=== PATIENT | female | born 1970 | race Caucasian/White ===

== ENCOUNTER 2018-02-06 07:21 | Day surgery (SDC) | payer OTHER ==
[2018-02-06 08:34] VITALS: BMI 26.9
[2018-02-06] MEDS ORDERED: PROPOFOL 20 ML ONE ×2 (09:07)
[2018-02-06 09:59] VITALS: TEMP 97.4
[2018-02-06 11:10] VITALS: BP 112/70; PULSE 62
--- NOTE | 2018-02-07 14:44 | PATH ---
Surgical Pathology Report Patient Name: ZULAY AUSTIN [facility]. Rec. #: [id number] /Age/Gender: 1970 (Age: 48) / F Account: [id number] Location: [facility]-ENDOSCOPY Taken: 02/06/2018 Received: 02/06/2018 Reported: 02/07/2018 Physicians: Jani Moore M.D. Specimen(s) Received A: BX 2ND PORTION DUODENUM B: BX BODY/STOMACH C: BX MID ESOPHAGUS Clinical History GERD, dysphagia Postoperative diagnosis: Lipoma second portion of duodenum, erythema body of stomach Final Diagnosis A. DUODENUM, SECOND PORTION, BIOPSY: DUODENAL MUCOSA WITH MILD CHRONIC DUODENITIS. NO SUBMUCOSAL TISSUE PRESENT FOR EVALUATION. B. BODY/STOMACH, BIOPSY: GASTRIC MUCOSA WITH NO DIAGNOSTIC ABNORMALITIES. IMMUNOSTAIN IS NEGATIVE FOR H. PYLORI ORGANISMS. C. MID ESOPHAGUS, BIOPSY: ESOPHAGEAL (SQUAMOUS) MUCOSA WITH NO DIAGNOSTIC ABNORMALITIES. Electronically Signed Pita Watson M.D. Gross Description A. Received in formalin, labeled "biopsy second portion of duodenum" is a rivera, irregular portion of soft tissue measuring 0.5 cm. in greatest dimension. The specimen is submitted in toto in one cassette. B. Received in formalin, labeled "biopsy body/stomach" are 2 rivera, irregular portions of soft tissue averaging 0.2 cm. in greatest dimension. The specimens are submitted in toto in one cassette. C. Received in formalin, labeled "biopsy midesophagus" are 4 rivera, irregular portions of soft tissue ranging from 0.2-0.3 cm. in greatest dimension. The specimens are submitted in toto in one cassette. /02/06/2018 [facility]02/06/2018
== END 2018-02-06 11:10 | disposition home or self-care (01) ==
LOC: JASU-ENDO 07:21
PROVIDERS: ATTEND Internal Medicine Gastroenterology
PROC: 0DB68ZX Excision of Stomach, Via Natural or Artificial Opening Endoscopic, Diagnostic (ICD-10-PCS; 2018-02-06)
PROC: 0DB58ZX Excision of Esophagus, Via Natural or Artificial Opening Endoscopic, Diagnostic (ICD-10-PCS; 2018-02-06)
PROC: 0DB98ZX Excision of Duodenum, Via Natural or Artificial Opening Endoscopic, Diagnostic (ICD-10-PCS; principal; 2018-02-06 08:30)
DX: K29.80 Duodenitis without bleeding (principal)
CPT/HCPCS: 84703; 88305-TC; 88342-TC

== ENCOUNTER 2018-04-22 05:23 | Day surgery (SDC) | payer OTHER ==
[2018-04-16 18:33] VITALS: BMI 26.9
--- NOTE | 2018-04-22 09:25 | HP ---
Admitting History and Physical - Admission Chief Complaint: Pelvic mass History of Present Illness: 48 y/o female with past medical history of ovarian cyst, salpingitis/ pyosalpinx resulting in laparoscopic right salpingectomy, IBS, c section and arm surgery presented to the office with large pelvic mass found on CT and ultrasound. Imaging ordered 2/2 abdominal pain/pressure. Elevated Ova 1 and Ca 125. Pt seen by CUSTOMS PATROL OFFICER/Oncology as outpatient and recommended hysterectomy/ BSO. Plan made for Robotic Hysterectomy, BSO possible Laparotomy and staging procedures with Dr. Brower. History Source: Patient, Medical Record Limitations to Obtaining History: No Limitations - Past Medical History Cardiovascular: No: AFIB, HTN Pulmonary: No: Asthma, COPD Gastrointestinal: Yes: Other (IBS) ...LMP: 04/16/18 Heme/Onc: No: Anemia Psych: No: Anxiety, Bipolar, Depression - Past Surgical History Past Surgical History: Yes: Additional Past Surgical History: D&C laparoscopic right salpingectomy - Smoking History Smoking history: Former smoker Have you smoked in the past 12 months: No If you are a former smoker, when did you quit?: 1997 - Alcohol/Substance Use Hx Alcohol Use: Yes (socially) - Social History ADL: Independent History of Recent Travel: No Home Medications - Allergies Allergies/Adverse Reactions: Allergies Allergy/AdvReac Type Severity Reaction Status Date / Time No Known Allergies Allergy Verified 04/22/18 08:37 - Home Medications Home Medications: Ambulatory Orders Ibuprofen [Advil -] 200 mg PO BID 02/06/18 Omeprazole 40 mg PO DAILY 02/06/18 Meclizine HCl 12.5 mg PO BID 04/16/18 Oxycodone HCl/Acetaminophen [Percocet 5-325 mg Tablet] 1 - 2 tab PO Q6H PRN #30 tab MDD 8 04/23/18 Review of Systems - Review of Systems Constitutional: reports: No Symptoms Eyes: reports: No Symptoms HENT: reports: No Symptoms Neck: reports: No Symptoms Cardiovascular: reports: No Symptoms Respiratory: reports: No Symptoms Gastrointestinal: reports: Other (abdominal pressure) Genitourinary: reports: Other (occasional urinary incontinence). denies: Vaginal Bleeding Breasts: reports: No Symptoms Reported Integumentary: reports: No Symptoms Neurological: reports: No Symptoms Psychiatric: reports: No Symptoms Physical Examination Vital Signs: Vital Signs Temperature 98.5 F 04/22/18 08:34 Pulse Rate 104 H 04/22/18 08:34 Respiratory Rate 20 04/22/18 08:34 Blood Pressure 116/90 04/22/18 08:34 O2 Sat by Pulse Oximetry (%) 96 04/22/18 08:33 Constitutional: Yes: Well Nourished, No Distress, Calm HENT: Yes: WNL Gastrointestinal: Yes: Normal Bowel Sounds, Soft. No: Tenderness Extremities: Yes: WNL Edema: No Integumentary: Yes: WNL Neurological: Yes: Alert, Oriented Psychiatric: Yes: Alert, Oriented Problem List - Problems (1) Adnexal mass Code(s): N94.9 - UNSP COND ASSOC W FEMALE GENITAL ORGANS AND MENSTRUAL CYCLE Assessment/Plan plan for robotic hysterectomy, BSO AFVSS Hgb 12.8 preop NPO SCDs Prado catheter consents were signed previously with CUSTOMS PATROL OFFICER/ONC and were reconfirmed today
[2018-04-22] MEDS ORDERED: CEFAZOLIN 2 GM in DEXTROSE 5%-WATER - 100 ML IVPB ONE (09:56)
[2018-04-22] MEDS ORDERED: ROCURONIUM BROMIDE 50 MG/5 ML VIAL ONE ×2 (10:03→11:17)
[2018-04-22] MEDS ORDERED: LIDOCAINE HCL/PF 2% SDV 5ML VIAL ONE (10:03)
[2018-04-22] MEDS ORDERED: PROPOFOL 20 ML ONE (10:03)
[2018-04-22] MEDS ORDERED: MIDAZOLAM HCL 2 MG/2 ML SINGLE DOSE VIAL ONE (10:03)
[2018-04-22] MEDS ORDERED: fentaNYL CITRATE 250 MCG/5 ML VIAL ONE (10:03)
[2018-04-22] MEDS ORDERED: ceFAZolin SODIUM 1 GM VIAL ONE ×2 (10:55→17:11)
[2018-04-22] MEDS ORDERED: DEXAMETHASONE SOD PHOSPHATE 4 MG/1 ML VIAL ONE (11:01)
[2018-04-22] MEDS ORDERED: ceFAZolin SODIUM 1 GM VIAL IVPB ONE ×2 (11:01→11:02)
[2018-04-22] MEDS ORDERED: BUPIVACAINE HCL/PF 0.5% (5MG/ML) 10 ML VIAL ONE (11:10)
[2018-04-22] MEDS ORDERED: BUPIVACAINE HCL/PF (5 MG/ML) 30 ML VIAL IJ ONE ×2 (11:13→12:38)
[2018-04-22] MEDS ORDERED: NEOSTIGMINE METHYLSULFATE 0.5 MG/ML - 10 ML MDV ONE (12:31)
[2018-04-22] MEDS ORDERED: GLYCOPYRROLATE 0.2 MG/1 ML VIAL ONE (12:31)
[2018-04-22] MEDS ORDERED: ONDANSETRON 4 MG/2 ML VIAL IVPUSH PRN (13:06)
[2018-04-22] MEDS ORDERED: LACTATED RINGERS SOLUTION 1,000 ML IV SCH (13:15)
[2018-04-22] MEDS ORDERED: oxyCODONE HCL 5 MG TABLET PO PRN ×2 (13:23)
[2018-04-22] MEDS ORDERED: LACTATED RINGERS SOLUTION 1,000 ML/1,000 ML INFUS.BAG IV SCH (14:00)
[2018-04-22] MEDS ORDERED: IBUPROFEN 800 MG/8 ML IJ IVPB PRN (15:47)
[2018-04-22] MEDS ORDERED: SIMETHICONE 80 MG TAB.CHEW (FP) PO PRN (15:55)
[2018-04-22] MEDS ORDERED: DEXTROSE 5%-WATER - 50 ML IVPB ONE (17:11)
[2018-04-22] MEDS: CEFAZOLIN 1 GM in DEXTROSE 5%-WATER - 50 ML IVPB SCH (18:26)
--- NOTE | 2018-04-22 18:52 | OP ---
Operative Note - Note: Operative Date: 04/22/18 Pre-Operative Diagnosis: adnexal mass, elevated Ova 1 and Ca 125 Operation: Robotic TLH BSO Findings: Large left adnexal mass normal appearing uterus and right ovary absent right fallopian tube unremarkable intra abdominal findings Post-Operative Diagnosis: Same as Pre-op Surgeon: Cara Brower Actuarial Science Professor: Maddie Tolentino Anesthesiologist/BIOPROCESSING MANUFACTURING TECHNICIAN: Julio C Gamble Anesthesia: General Specimens Removed: uterus, cervix, left fallopian tube and ovary, right ovary, pelvic washings Estimated Blood Loss (mls): 50
[2018-04-22] MEDS: ACETAMINOPHEN 325 MG TABLET (FP) PO PRN (20:53)
[2018-04-22] MEDS: MECLIZINE HCL 12.5 MG TABLET PO SCH (21:02)
[2018-04-22] MEDS ORDERED: IBUPROFEN 200 MG TABLET PO SCH (22:00)
[2018-04-23] MEDS ORDERED: DEXTROSE 5%-WATER - 50 ML IVPB ONE (01:39)
[2018-04-23] MEDS ORDERED: ceFAZolin SODIUM 1 GM VIAL ONE (01:39)
[2018-04-23] MEDS: CEFAZOLIN 1 GM in DEXTROSE 5%-WATER - 50 ML IVPB SCH (01:45)
[2018-04-23] MEDS: ACETAMINOPHEN 325 MG TABLET (FP) PO PRN (06:41)
[2018-04-23 08:31] VITALS: BP 107/76; PULSE 96; TEMP 98.1
[2018-04-23 08:38] LABS: ANION GAP 7 (8-16); BASO % 0.3 % (0-2.0); BLOOD UREA NITROGEN 8 mg/dL (7-18); CALCIUM 8.4 mg/dL (8.5-10.1); CHLORIDE 107 mmol/L (98-107); CO2 29 mmol/L (21-32); EOS % 0.3 % (0-4.5); GLUCOSE,RANDOM 99 mg/dL (74-106); HEMOGLOBIN 10.6 GM/dL (10.7-15.3); LYMPH % 21.3 % (8-40); MCHC 34.4 g/dl (32.0-36.0); MEAN CELL VOLUME 90.2 fl (80-96); MEAN PLT VOLUME 7.5 fl (7.5-11.1); MONO % 5.4 % (3.8-10.2); NEUT % 72.7 % (42.8-82.8); PLATELET COUNT 210 K/MM3 (134-434); POTASSIUM 3.8 mmol/L (3.5-5.1); RBC 3.43 M/mm3 (3.60-5.2); SODIUM 143 mmol/L (136-145); WHITE BLOOD COUNT 7.2 K/mm3 (4.0-10.0)
[2018-04-23 08:41] LABS: CREATININE 0.5 mg/dL (0.55-1.02)
[2018-04-23] MEDS: MECLIZINE HCL 12.5 MG TABLET PO SCH (09:08)
--- NOTE | 2018-04-23 09:31 | PN ---
Progress Note (short form) - Note Progress Note: POD#1 Pt oob this am and voiding, after oro catheter removed. No CP/SOB. Tolerated clears last pm and small amount of solid food this am. Scant vaginal bleeding noted. Vital Signs Period Temp Pulse Resp BP Sys/Rebolledo Pulse Ox Last 24 Hr 97.6 F-99.1 F 68-105 14-22 107-131/70-89 98-100 GEN: appears comfortable CV: RRR Lungs: CTA b/l ABD: soft, non-distended, inc tenderness. Inc c/d/i with dermabond. LE: No calf tenderness/swelling noted. LINDSEY in place. CBC, BMP 04/23/ 07:40 04/23/18 07:40 A/p: 48 yo female s/p Robotic TLH BSO Plan for discharge to home today after tolerating regular diet Continue oob/ambulate DVT ppx with lovenox/SCD/LINDSEY and ambulate Care plan D/w. Dr. Tolentino
[2018-04-23] MEDS ORDERED: ENOXAPARIN NA (PORCINE) 40 MG/0.4 ML DISP.SYRIN SQ SCH (10:00)
[2018-04-23] MEDS ORDERED: PANTOPRAZOLE 40 MG TABLET (FP) PO SCH (10:00)
--- NOTE | 2018-04-28 17:09 | PATH ---
Cytology Non-Gynecological Report Patient Name: ZULAY AUSTIN [facility]. Rec. #: [id number] /Age/Gender: 1970 (Age: 48) / F Account: <[id number]> Location: [facility] Taken: 04/22/2018 Received: 04/23/2018 Reported: 04/28/2018 Physicians: Susan Neil MD Specimen(s) Received PERITONEAL WASH Clinical History Pelvic mass Final Diagnosis PERITONEAL WASHING FOR CYTOLOGY: SATISFACTORY FOR EVALUATION. ATYPICAL. RARE ATYPICAL PAPILLARY CLUSTER IN A BACKGROUND OF MESOTHELIAL CELLS WITH DEGENERATIVE CHANGES AND RARE LYMPHOCYTES PRESENT. Comment: There is a rare atypical papillary cluster which cannot be further classified in this material. ER stain is utilized to evaluate this case. See concurrent material ([id number]). Electronically Signed Kerry Ruelas M.D. Gross Description Approximately 30 cc of clear fluid received fresh. Two cytofunnels prepared.
--- NOTE | 2018-04-28 17:29 | PATH ---
Surgical Pathology Report Patient Name: ZULAY AUSTIN [facility]. Rec. 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 RIGHT OVARY WITH SMALL FOCUS OF HIGH GRADE SEROUS CARCINOMA. SMALL POSSIBLE RESIDUAL RIGHT FALLOPIAN TUBE STUMP IDENTIFIED. WEAKLY PROLIFERATIVE ENDOMETRIUM. MYOMETRIUM WITH INTRAMURAL LEIOMYOMA. CERVIX WITHOUT SIGNIFICANT PATHOLOGIC FINDINGS. AJCC PATHOLOGIC STAGE: pT1c pNx. Comment: Histologic sections show malignant epithelial cells with moderate to marked nuclear atypia, focal nuclear pleomorphism and prominent nucleoli. Branching papillary fronds, nests, and cribriform areas are present. Stromal invasion and numerous mitosis including rare atypical forms are present. Immunohistochemical stains performed at [place], [place] ([id number]) and interpreted at [facility] show the carcinoma is positive for WT-1, PAX-8, p16 (diffuse, strong), ER, and NE (focal). P53 shows strong and diffuse positive staining (mutant staining/expression). Beta-catenin was utilized to evaluate this case. Overall histomorphology and immunophenotype is consistent with high grade papillary serous carcinoma. See concurrent peritoneal washing ([id number]). Comments Ovary or Fallopian Tube or Primary Peritoneal: Surgical Pathology Cancer Case Summary Procedure _X_ Total hysterectomy and bilateral salpingo-oophorectomy Specimen Integrity of Right Ovary _X_ Capsule intact Specimen Integrity of Left Ovary _X_ Capsule intact Specimen Integrity of Right Fallopian Tube _X_ Other (specify): Possible stump present Specimen Integrity of Left Fallopian Tube _X_ Serosa intact Tumor Site _X_ Left fallopian tube Ovarian Surface Involvement _X__ Present Specify laterality: Right Fallopian Tube Surface Involvement _X_ Not Present Tumor Size Greatest dimension (centimeters): _5 x 3.5 x 2.0_ cm (gross measurement) Histologic Type _X__ Serous carcinoma Histologic Grade Two-Tier Grading System _X_ High grade Implants _X__ Not identified Other Tissue/ Organ Involvement _X_ Right ovary Peritoneal/Ascitic Fluid _X__ Atypical: Atypical papillary cluster which cannot be further classified ([id number]) Pleural Fluid _X__ Not submitted / unknown Treatment Effect __X_ No known presurgical therapy Regional Lymph Nodes _X__ No lymph nodes submitted or found Pathologic Stage Classification (pTNM, AJCC 8th Edition) Primary Tumor (pT) _X__ pT1c: Tumor limited to one or both ovaries or fallopian tubes. Regional Lymph Nodes (pN) _X_ pNX: Regional lymph nodes cannot be assessed Additional Pathologic Findings _X__ Serous tubal intraepithelial carcinoma (STIC) _X__ Other (specify): Intramural leiomyoma Electronically Signed Kerry Ruelas M.D. Amendments Amended: 05/13/2018 Previous Signout Date: 04/28/2018 Comment: Change staging from T1b to T1c. Findings discussed with Dr. Serrano. Gross Description Received fresh labeled "uterus, cervix, left fallopian tube and ovary and cyst," is a 125 g uterus with an attached cervix and an attached left fallopian tube, left ovary, left ovarian mass and right ovary. There is a small portion of right fallopian tube stump present. The uterus is 9.5 cm from superior to inferior, 6 cm from left to right and 4.0 cm from anterior to posterior. The serosa is pink-rivera with focal defects. The attached cervix measures 3.7 cm in length and 3.4 cm in diameter. The ectocervix is pink-rivera, smooth and glistening. The endocervix is unremarkable. The endometrial cavity measures 3.5 cm in length and 2 cm from cornu to cornu. The endometrium is rivera-pink and averages 0.1 cm in thickness. There is a 0.5 cm greatest dimension intramural nodule present. The cut surface of the nodule is rivera and rubbery with whorled architecture. No areas of hemorrhage or necrosis are identified. The myometrium is rivera-pink and measures up to 2 cm in thickness. The left fallopian tube measures 12 cm in length and displays distal dilatation with adherent 9.0 x 5.0 x 4.5 cm cystic left ovary. Sectioning of the distal left fallopian tube displays a 5.0 x 3.5 x 3.0 cm pink-rivera, papillary mass. No fimbria are identified. The proximal fallopian tube appears clear of the mass. The inner lining of the left ovarian is rivera-brown and focally hemorrhagic. No papillary excrescences are identified within the ovarian cyst. There is a 3.0 x 1.5 x 0.8 cm portion of possible normal left ovarian parenchyma identified. The right fallopian tube stump measures 0.8 cm in length. Sectioning reveals an unremarkable lumen. The right ovary measures 2.3 x 1.5 x 0.9 cm. The outer surface is rivera-pink and smooth. Sectioning reveals abundant corpora albicantia. The remaining ovarian parenchyma is unremarkable. A underwriting sales representative portion of the left fallopian tube mass and proximal left fallopian tube is submitted for frozen section. Router Operator Radial sections are submitted in 30 cassettes as follows: 1- frozen section residue of left fallopian tube mass and proximal left fallopian tube; 2-anterior cervix; 3-posterior cervix; 5-1-agravxkf endomyometrium; 8-2-ryiqyfvvu endomyometrium; 8-intramural nodule; 3-18-isqbcoqbtxaa submitted left fallopian tube from proximal to distal (mass in cassettes 14-20 and inner lining of attached left ovarian cyst in 13-17); 90-72-jguoavjvkv left ovarian cyst; 26-possible normal left ovarian parenchyma; 27-entirely submitted right fallopian tube stump; 43-20-xwjtuhvi submitted right ovary. 04/22/2018 saudi04/22/2018
--- NOTE | 2018-05-08 08:11 | OP ---
DATE OF OPERATION: 04/22/2018 PREOPERATIVE DIAGNOSES: Complex adnexal mass, elevated tumor marker, concern for malignancy. POSTOPERATIVE DIAGNOSES: Complex adnexal mass, elevated tumor marker, concern for malignancy. PROCEDURE: Robotic total laparoscopic hysterectomy, left salpingo-oophorectomy, right oophorectomy. ANESTHESIA: General. COMPLICATIONS: None. SURGEON: Maddie Tolentino DO DISTRICT FIRE CHIEF SURGEON: Cara Brower MD SPECIMENS REMOVED: Included left fallopian tube and ovary, uterus, cervix, right ovary. FINDINGS: Included absent right fallopian tube. DISPOSITION: Stable to PACU. ESTIMATED BLOOD LOSS: 50 mL COUNTS: Sponge, needle, and instrument count reported to be correct. BRIEF HISTORY AND PROCEDURE: Patient is a 48-year-old female who had been seen in the office with complaints of an incidental pelvic mass noted on a CAT scan which was ordered for other indications. The patient was worked up, and there was an elevated tumor marker and concern for a possible malignancy. The patient was sent to Oncology for further evaluation, and Dr. Cara Brower was in agreement the patient needed a hysterectomy. At that point, the patient was counseled on her options, and she elected to undergo a robotic-assisted laparoscopic hysterectomy and bilateral salpingo-oophorectomy, possible staging procedure, possible lymph node biopsies, and possible omentectomy. The patient was admitted to [facility] on April 22, 2018. All consents for the procedure were reconfirmed. The patient was then taken back into the operating room where she was given general anesthesia and placed in the dorsal lithotomy position. A Prado catheter was placed under sterile conditions. She was prepped and draped in the usual sterile fashion, and a hard timeout was performed. An 8-mm skin incision was created above the umbilicus, and a Veress needle was introduced into the abdominal cavity. CO2 gas was connected, and the abdomen was insufflated with CO2 gas. The abdominal 8-mm trocar was inserted, and after confirmation of intraabdominal placement with the camera, the remaining trocars were placed at this time, two 8-mm trocars in the upper abdomen, one 5-mm trocar in the lower right quadrant. The robot was then docked, and then, the hysterectomy procedure was begun. Attention was turned first to the left infundibulopelvic ligament which was identified. The ureter was noted to be peristalsing transperitoneally posterior to the left infundibulopelvic ligament. The IP ligament was isolated, cauterized, and cut at this time, freeing the ovary and fallopian tube from its attachment to the pelvic sidewall. Next, the round ligament on the left side was identified, cauterized, and cut, and then, the bladder flap was extended, dissecting the bladder from the lower uterine segment and cervix all the way to the right round ligament. The left uterine artery was identified, skeletonized, clamped, and cut in several passes with the bipolar cautery until we reached the level of the internal cervical os. Attention was then turned to the right side where the round ligament was clamped, cauterized, and cut. Next, the right ureter was noted to be peristalsing transperitoneally, and the right infundibulopelvic ligament was clamped, cauterized, and cut with the bipolar device and sharply cut with the monopolar scissors. The uterine artery on the right side was identified, skeletonized, clamped, cauterized, and cut in several passes with bipolar and monopolar devices until we reached the level of the internal cervical os. At this point, the uterine artery was further dissected until the level of the uterosacral ligaments bilaterally, and then, a colpotomy was begun anteriorly and carried in a 360-degree fashion until the uterus, fallopian tubes, cervix, and ovaries were all detached from their pelvic attachments. An Endo Catch bag was then placed into the abdominal cavity via the vagina. The specimen was fully encompassed into the bag, and the specimen was removed from the vagina at this time. All surgical pedicles and surgical sites were noted to be hemostatic. Then, using a 0 V-Loc suture, the vaginal cuff was reapproximated in a running locked fashion. Again, excellent hemostasis was achieved in all surgical sites. The needle was then removed from the 8-mm trocar and all trocars were then removed and the robot was undocked. The abdomen was desufflated. The skin approximated using 4-0 Biosyn in a subcuticular fashion, and skin glue was applied. The patient was awoken from anesthesia and taken to the PACU in stable condition. MADDIE TOLENTINO DO /[id number]
== END 2018-04-23 14:00 | disposition home or self-care (01) ==
LOC: JASU-SURG 05:23 → JASUSAT 05:23 → JSAMEDAYSX 05:39 → UNDOADMIN 05:39 → J3W 14:25 → JSAMEDAYSX 14:25 → UNDODISIN 04-23 14:00 → JASU-SURG 04-23 14:00
PROVIDERS: ATTEND Obstetrics & Gynecology
PROC: 0UT7FZZ Resection of Bilateral Fallopian Tubes, Via Natural or Artificial Opening With Percutaneous Endoscopic Assistance (ICD-10-PCS; 2018-04-22)
PROC: 8E0W4CZ Robotic Assisted Procedure of Trunk Region, Percutaneous Endoscopic Approach (ICD-10-PCS; 2018-04-22)
PROC: 0UT9FZZ Resection of Uterus, Via Natural or Artificial Opening With Percutaneous Endoscopic Assistance (ICD-10-PCS; principal; 2018-04-22 10:00)
PROC: 0UT2FZZ Resection of Bilateral Ovaries, Via Natural or Artificial Opening With Percutaneous Endoscopic Assistance (ICD-10-PCS; 2018-04-22 10:00)
DX: C57.02 Malignant neoplasm of left fallopian tube (principal); C57.01 Malignant neoplasm of right fallopian tube
CPT/HCPCS: 58552; S2900; 36415; 80048; 84703; 85025; 88104; 88305-TC; 88307-TC; 88331-TC; 94010; 94760

== ENCOUNTER 2018-05-20 08:41 | Day surgery (SDC) | payer OTHER ==
[2018-05-19 10:20] VITALS: BMI 26.3
--- NOTE | 2018-05-20 10:25 | HP ---
History & Physical Update - History History: No Change - Physical Physical: No Change - Assessment Assessment: No Change - Plan Plan: No Change
[2018-05-20] MEDS ORDERED: ONDANSETRON 4 MG/2 ML VIAL IVPUSH PRN ×2 (10:34→14:12)
[2018-05-20] MEDS ORDERED: LIDOCAINE 1%/EPI 1:100000 (20 ML MULTI DOSE VIAL) ONE (10:36)
[2018-05-20] MEDS ORDERED: LACTATED RINGERS SOLUTION 1,000 ML IV SCH ×2 (10:45→14:15)
[2018-05-20] MEDS ORDERED: fentaNYL CITRATE 250 MCG/5 ML VIAL ONE (11:21)
[2018-05-20] MEDS ORDERED: ROCURONIUM BROMIDE 50 MG/5 ML VIAL ONE ×2 (11:21→13:09)
[2018-05-20] MEDS ORDERED: SUCCINYLCHOLINE CHLORIDE 200 MG/10 ML VIAL ONE (11:21)
[2018-05-20] MEDS ORDERED: PROPOFOL 20 ML ONE ×2 (11:21→14:51)
[2018-05-20] MEDS ORDERED: DEXAMETHASONE SOD PHOSPHATE 4 MG/1 ML VIAL ONE (11:22)
[2018-05-20] MEDS ORDERED: LIDOCAINE HCL/PF 2% SDV 5ML VIAL ONE (11:22)
[2018-05-20] MEDS ORDERED: MIDAZOLAM HCL 2 MG/2 ML SINGLE DOSE VIAL ONE (11:22)
[2018-05-20] MEDS ORDERED: ceFAZolin SODIUM 1 GM VIAL IVPB ONE (12:05)
[2018-05-20] MEDS ORDERED: ceFAZolin SODIUM 1 GM VIAL ONE (12:05)
[2018-05-20] MEDS ORDERED: LIDOCAINE 1%/EPI 1:100000 (50 ML MULTI DOSE VIAL) INF ONE ×2 (12:18)
[2018-05-20] MEDS ORDERED: PROMETHAZINE HCL 25 MG/1 ML VIAL IVPUSH PRN (14:12)
[2018-05-20] MEDS ORDERED: NEOSTIGMINE METHYLSULFATE 0.5 MG/ML - 10 ML MDV ONE (14:35)
[2018-05-20] MEDS ORDERED: GLYCOPYRROLATE 0.2 MG/1 ML VIAL ONE (14:36)
[2018-05-20] MEDS ORDERED: ACETAMINOPHEN INJECTION 100 ML IVPB ONE (15:28)
[2018-05-20] MEDS ORDERED: KETOROLAC TROMETHAMINE 30 MG/1 ML VIAL ONE (15:28)
[2018-05-20] MEDS: KETOROLAC TROMETHAMINE 30 MG/1 ML VIAL IVPUSH SCH (15:30)
[2018-05-20] MEDS ORDERED: METOCLOPRAMIDE HCL INJECTION 10 MG/2 ML VIAL IVPUSH PRN (15:32)
[2018-05-20] MEDS ORDERED: ONDANSETRON 4 MG/2 ML VIAL IVPB PRN (15:32)
[2018-05-20] MEDS ORDERED: diphenhydrAMINE HCL 25 MG CAPSULE (FP) PO PRN (15:32)
[2018-05-20] MEDS ORDERED: PROCHLORPERAZINE INJECTION 10 MG/2 ML VIAL IVPB PRN (15:32)
[2018-05-20] MEDS ORDERED: MORPHINE SULFATE 2 MG/ML VIAL IVPUSH PRN (15:32)
[2018-05-20] MEDS ORDERED: ACETAMINOPHEN 1000 MG/100 ML VIAL (NON FORMULARY) IVPB ONE (17:00)
--- NOTE | 2018-05-20 18:12 | OP ---
Operative Note - Note: Operative Date: 05/20/18 Pre-Operative Diagnosis: Fallopian tube carcinoma, at least stage 1C Operation: Robotic Bilat pelvic and paraaortic lymphadenectomy, omentectomy, biosy Surgeon: Cara Brower Program Research Specialist: Maddie Tolentino Anesthesia: General, Local Specimens Removed: bilateral pelvic, paraaortic, omentum, left IP ligament remnant biopsy, washings Estimated Blood Loss (mls): 100 Drains & Tubes with Location: none Operative Report Dictated: Yes
[2018-05-20] MEDS: oxyCODONE HCL 5 MG TABLET PO PRN ×2 (20:19→23:43)
--- NOTE | 2018-05-20 23:13 | OP ---
DATE OF OPERATION: 05/20/2018 PREOPERATIVE DIAGNOSIS: Fallopian tube carcinoma at least stage 1C. POSTOPERATIVE DIAGNOSIS: Fallopian tube carcinoma at least stage 1C. PROCEDURE: Robotic-assisted bilateral pelvic and periaortic lymphadenectomy, omentectomy, and biopsy. SURGEON: Cara Brower MD BIRD TENDER: Maddie Tolentino DO ANESTHESIA: General endotracheal and local. ESTIMATED BLOOD LOSS: 100 mL. COMPLICATIONS: None. INDICATIONS: This is a 48-year-old with history of stage 1C left fallopian tube carcinoma diagnosed on April 22, 2018, when she underwent a robotic-assisted total hysterectomy, bilateral salpingo-oophorectomy, and lysis of adhesions. The pathology returned a high-grade papillary serous carcinoma involving the distal portion of the left fallopian tube and left fallopian tube with serous tubal intraepithelial carcinoma as well as a small focus of high-grade serous carcinoma on the right ovary with surface involvement. Patient had previous right salpingectomy for a history of PID. The patient then underwent a postoperative CT scan of the chest, abdomen, and pelvis, which did not show any evidence of metastatic disease on May 16, 2018. Patient was counseled regarding surgical management for staging procedure prior to commencing chemotherapy. Risks, benefits, indications, alternatives were discussed with the patient and all questions were answered. Informed consent was signed. FINDINGS: Surgically absent uterus, cervix, ovaries, and tubes. The distal omentum was adherent to the vaginal cuff as well as to the bilateral side delacruz. There was no evidence of metastatic disease in the abdomen or pelvis. The liver edge was smooth. There was no ascites. The omentum appeared normal. The appendix appeared normal. There was no lymphadenopathy. DESCRIPTION OF PROCEDURE: The patient was taken to the operating room and placed in the dorsal supine position. General endotracheal anesthesia was obtained without difficulty. She was placed in the dorsal lithotomy position and Jose stirrups and was prepped and draped in the normal sterile fashion. Prado catheter was placed in the bladder. Attention was turned to the patient's abdomen. Then, 5 mL of 1% lidocaine with epinephrine was injected into the midline incision of her previous scar. The previous incision was opened and while tenting the anterior abdominal wall the Veress needle was inserted intra-abdominally. The abdomen was insufflated with CO2 gas. An 8-mm trocar was placed. Intraabdominal placement was confirmed by direct visualization. Additional trocars were placed in their previous laparotomy port site scars and additional 8-mm trocar was placed in the left lateral mid quadrant. A 5-mm port was placed in the right lower quadrant. All trocars were placed under direct visualization after injecting 1% lidocaine with epinephrine. A thorough examination of the abdomen and pelvis revealed the above noted findings. Peritoneal washings were taken using normal saline. The omentum was freed from its attachments to the pelvis. The omentum was freed from its attachments to the distal colon and omentectomy was performed later. The right pelvic side wall was opened. The retroperitoneal lymph nodes from the medial and lateral side of the external iliac artery and vein were removed as well as in the obturator space anterior to the obturator nerve. These lymph nodes were handed off of the field. Excellent hemostasis was seen. The right retroperitoneum was opened more cephalad and the lymph nodes on the inferior vena cava were removed as well. Excellent hemostasis was seen with good visualization of the ureter seen. Surgicel was placed for added assurance for hemostasis. The left retroperitoneum was opened and the lymph nodes from the distal half of the common iliac to the deep circumflex were removed from the medial and lateral surface of the external iliac artery and vein. The obturator space was opened. The obturator nerve was identified. Lymph nodes anterior to this were removed. These lymph nodes were handed off of the field as left pelvic lymph nodes. The retroperitoneum was opened more cephalad. The lymph nodes from the left periaortic area were removed as well. Surgicel was placed here for added assurance. These lymph nodes were handed off of the field as left periaortic lymph nodes. The omentectomy again was performed using the vessel sealer, removing omentum from inferior to the transverse colon. This omentum was handed off of the field in a 15-mm EndoCatch bag. The right lower quadrant trocar had been changed over for a 15-mm port. The omentum was removed through a bag. The pelvis was thoroughly irrigated and noted to be hemostatic. The left infundibulopelvic ligament remnant was excised using the vessel sealer and handed of the field. Otherwise, the pelvis did not show any evidence of metastatic disease, requiring biopsy. Pelvis was thoroughly irrigated and noted to be hemostatic. All instruments were removed from the patient's abdomen. The da Yasmine robot was then undocked. The right lower quadrant incision was closed at the fascia with multiple interrupted stitches of 0 Vicryl. Skin was closed with 4-0 Monocryl and Dermabond was applied. The patient was extubated and transferred in stable condition to the PACU. Susan Amado/[id number]
[2018-05-20] MEDS: ACETAMINOPHEN 325 MG TABLET (FP) PO SCH (23:42)
[2018-05-21] MEDS: KETOROLAC TROMETHAMINE 30 MG/1 ML VIAL IVPUSH SCH ×2 (06:13→11:23)
[2018-05-21] MEDS: ACETAMINOPHEN 325 MG TABLET (FP) PO SCH ×2 (06:22→11:25)
[2018-05-21 08:10] LABS: HEMATOCRIT 32.9 % (32.4-45.2); HEMOGLOBIN 11.1 GM/dL (10.7-15.3); MCH 30.2 pg (25.7-33.7); MCHC 33.8 g/dl (32.0-36.0); MEAN CELL VOLUME 89.3 fl (80-96); MEAN PLT VOLUME 7.6 fl (7.5-11.1); PLATELET COUNT 176 K/MM3 (134-434); RBC 3.68 M/mm3 (3.60-5.2); RDW 13.5 % (11.6-15.6); WHITE BLOOD COUNT 6.6 K/mm3 (4.0-10.0)
[2018-05-21 08:31] LABS: ANION GAP 9 MMOL/L (8-16); BLOOD UREA NITROGEN 12 mg/dL (7-18); CALCIUM 8.7 mg/dL (8.5-10.1); CHLORIDE 104 mmol/L (98-107); CO2 28 mmol/L (21-32); CREATININE 0.5 mg/dL (0.55-1.02); GLUCOSE,RANDOM 112 mg/dL (74-106); POTASSIUM 3.8 mmol/L (3.5-5.1); SODIUM 141 mmol/L (136-145)
[2018-05-21] MEDS: oxyCODONE HCL 5 MG TABLET PO PRN (12:30)
--- NOTE | 2018-05-21 12:33 | PN ---
Progress Note, Physician Chief Complaint: Pt seen/evaluated and doing well. RLQ incisional pain otherwise feeling well. OOB, voiding, tolerating regular diet. Denies dizziness/light headedness/CP/SOB /F/C. - Current Medication List Current Medications: Active Medications Acetaminophen (Tylenol -) 650 mg PO Q6H [facility] Last Admin: 05/21/18 11:25 Dose: 650 mg Diphenhydramine HCl (Benadryl Injection -) 25 mg IVPB Q6H PRN PRN Reason: FOR ITCHING Diphenhydramine HCl (Benadryl -) 25 mg PO Q6H PRN PRN Reason: FOR ITCHING Ketorolac Tromethamine (Toradol Injection -) 30 mg IVPUSH Q6H [facility] Stop: 05/25/18 22:59 Last Admin: 05/21/18 11:23 Dose: 30 mg Metoclopramide HCl (Reglan Injection -) 10 mg IVPUSH Q6H PRN PRN Reason: NAUSEA AND/OR VOMITING Morphine Sulfate (Morphine Sulfate) 2 mg IVPUSH Q3H PRN PRN Reason: PAIN LEVEL 7 - 10 Ondansetron HCl (Zofran Injection) 8 mg IVPB Q8H PRN PRN Reason: NAUSEA Oxycodone HCl (Roxicodone -) 10 mg PO Q4H PRN PRN Reason: PAIN LEVEL 4 - 6 Stop: 05/21/18 14:11 Last Admin: 05/21/18 12:30 Dose: 10 mg Prochlorperazine Edisylate (Compazine Injection -) 25 mg IVPB Q6H PRN PRN Reason: NAUSEA AND/OR VOMITING - Objective Vital Signs: Vital Signs Temperature 98.3 F 05/21/18 06:00 Pulse Rate 78 05/21/18 06:00 Respiratory Rate 20 05/21/18 06:00 Blood Pressure 99/64 05/21/18 06:00 O2 Sat by Pulse Oximetry (%) 97 05/20/18 20:58 Constitutional: Yes: Well Nourished, No Distress, Calm Eyes: Yes: Conjunctiva Clear HENT: Yes: Atraumatic Neck: Yes: WNL, Tenderness Respiratory: Yes: WNL Gastrointestinal: Yes: Normal Bowel Sounds, Soft, Tenderness (RLQ incisional pain) Genitourinary: No: [place] Present, Vaginal Bleeding, Vaginal Discharge Wound/Incision: Yes: Clean/Dry, Well Approximated (with bandaids) Psychiatric: Yes: Alert, Oriented Labs: CBC, BMP 05/21/18 07:15 05/21/18 07:15 Problem List - Problems (1) Cancer of fallopian tube Code(s): C57.00 - MALIGNANT NEOPLASM OF UNSPECIFIED FALLOPIAN TUBE Qualifiers: Laterality: left Qualified Code(s): 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
[2018-05-21 14:29] VITALS: BP 104/59; PULSE 92; TEMP 99.3
--- NOTE | 2018-05-22 17:06 | PATH ---
Cytology Non-Gynecological Report Patient Name: ZULAY AUSTIN [facility] Rec. #: [id number] /Age/Gender: 1970 (Age: 48) / F Account: [id number] Location: AMBULATORY SURG Taken: 05/20/2018 Received: 05/21/2018 Reported: 05/22/2018 Physicians: Cara Brower MD Specimen(s) Received PERITONEAL WASH Clinical History Fallopian tube carcinoma Final Diagnosis PERITONEAL WASHING FOR CYTOLOGY: SATISFACTORY FOR EVALUATION. NO MALIGNANT CELLS IDENTIFIED. FEW MESOTHELIAL CELLS PRESENT. Comment: See concurrent material [id number]. Electronically Signed Kerry Ruelas M.D. Gross Description Approximately 20 cc of clear fluid received fresh. One cytofunnel prepared.
--- NOTE | 2018-05-23 16:39 | PATH ---
Surgical Pathology Report Patient Name: ZULAY AUSTIN [facility]. Rec. #: [id number] /Age/Gender: 1970 (Age: 48) / F Account: [id number] Location: AMBULATORY SURG Taken: 05/20/2018 Received: 05/21/2018 Reported: 05/23/2018 Physicians: Cara Brower MD Specimen(s) Received A: RIGHT PELVIC LYMPH NODE B: RIGHT PARA AORTIC LYMPH NODE C: LEFT PELVIC LYMPH NODE D: LEFT PARA AORTIC LYMPH NODE E: OMENTUM F: LEFT IP REMNANTS Clinical History Fallopian tube cancer Final Diagnosis A. PELVIC LYMPH NODES, RIGHT, EXCISION: NINE BENIGN LYMPH NODES (0/9). B. PARA-AORTIC LYMPH NODES, RIGHT, EXCISION: FIVE BENIGN LYMPH NODES (0/5). C. PELVIC LYMPH NODES, LEFT, EXCISION: TEN BENIGN LYMPH NODES (0/10). D. PARA-AORTIC LYMPH NODES, LEFT, EXCISION: THREE BENIGN LYMPH NODES (0/3). E. OMENTUM, OMENTECTOMY: METASTATIC CARCINOMA. RARE TUMOR DEPOSITS MEASURING 0.5 MM IN GREATEST MICROSCOPIC DIMENSION ASSOCIATED WITH ORGANIZING FAT NECROSIS. SEE COMMENT. F. IP REMNANTS, LEFT, EXCISION: SOFT TISSUE WITH CHRONIC INFLAMMATION, GIANT CELL REACTION, NECROSIS, AND REACTIVE CHANGES. Comment: Immunohistochemical stain performed and interpreted at [facility] for AE1/3 highlights the carcinoma. Pathologic N stage; pN0. Findings discussed with Dr. Serrano. Electronically Signed Kerry Ruelas M.D. Gross Description A. Received in formalin labeled "right pelvic lymph nodes," is a 3.0 x 2.3 x 0.5 cm aggregate of yellow, lobulated adipose tissue. Sectioning reveals multiple rivera lymph nodes ranging from 0.4-1.2 cm in greatest dimension. The specimen is entirely submitted in 4 cassettes as follows: 1-three possible lymph nodes; 2-three possible lymph nodes; 3-one lymph node; 4-remaining adipose tissue. B. Received in formalin labeled "right para-aortic lymph node," is a 2.0 x 2.0 x 0.4 cm aggregate of yellow, lobulated adipose tissue. Sectioning reveals 4 possible lymph nodes ranging from 0.4-1.6 cm in greatest dimension. The specimen is entirely submitted in 4 cassettes as follows: 1-one bisected lymph node; 2-one whole lymph node; 3-two possible lymph nodes; 4-remaining adipose tissue. C. Received in formalin labeled "left pelvic lymph nodes," is a 4.7 x 3.5 x 0.5 cm aggregate of yellow, lobulated adipose tissue. Sectioning reveals multiple possible lymph nodes ranging from 0.4-1.4 cm in greatest dimension. The specimen is entirely submitted in 7 cassettes as follows: 1-one bisected lymph node; 2-one whole lymph node; 3-one whole lymph node; 4-multiple possible lymph nodes; 1-4-vujxugaye adipose tissue. D. Received in formalin labeled "left para-aortic lymph node," is a 2.4 x 1.5 x 0.6 cm aggregate of yellow, lobulated adipose tissue. Sectioning reveals 3 possible lymph nodes ranging from 0.6-1.5 cm in greatest dimension. The specimen is entirely submitted in 3 cassettes as follows: 1-one bisected lymph node; 2-two possible lymph nodes; 3-remaining adipose tissue. E. Received in formalin labeled "omentum," is a 20.0 x 15.0 x 1.5 cm aggregate of yellow, lobulated adipose tissue. Sectioning reveals foci of possible excrescences. Feed Weigher sections are submitted in 6 cassettes. F. Received in formalin labeled "left IP remnants," is a 1.7 x 1.4 x 0.9 cm rivera, unoriented portion of soft tissue. Sectioning reveals fibrous tissue and fat. The specimen is serially sectioned and entirely submitted in 2 cassettes. DL05/21/2018 saudi05/21/2018
== END 2018-05-21 13:30 | disposition home or self-care (01) ==
LOC: JASUSAT 08:41 → J3W 17:45 → JASUSAT 05-21 13:30
PROVIDERS: ATTEND Obstetrics & Gynecology Gynecologic Oncology
PROC: 07BC4ZX Excision of Pelvis Lymphatic, Percutaneous Endoscopic Approach, Diagnostic (ICD-10-PCS; 2018-05-20)
PROC: 0DTU4ZZ Resection of Omentum, Percutaneous Endoscopic Approach (ICD-10-PCS; 2018-05-20)
PROC: 07BD4ZX Excision of Aortic Lymphatic, Percutaneous Endoscopic Approach, Diagnostic (ICD-10-PCS; principal; 2018-05-20 10:00)
DX: C57.02 Malignant neoplasm of left fallopian tube (principal); C78.6 Secondary malignant neoplasm of retroperitoneum and peritoneum
CPT/HCPCS: 38562; 49255; S2900; 36415; 80048; 84703; 85027; 88104; 88304-TC; 88305-TC; 88307-TC; 88342-TC; 94760; J0131

== ENCOUNTER 2018-06-18 07:27 | Day surgery (SDC) | payer OTHER ==
[2018-06-16 14:42] VITALS: BMI 25.9
[2018-06-18 07:59] LABS: HEMATOCRIT 36.7 % (32.4-45.2); HEMOGLOBIN 12.3 GM/dL (10.7-15.3); MCH 29.9 pg (25.7-33.7); MCHC 33.5 g/dl (32.0-36.0); MEAN CELL VOLUME 89.3 fl (80-96); MEAN PLT VOLUME 7.6 fl (7.5-11.1); PLATELET COUNT 192 K/MM3 (134-434); RBC 4.11 M/mm3 (3.60-5.2); RDW 13.8 % (11.6-15.6)
[2018-06-18 08:40] LABS: INR 0.97 (0.83-1.09); PROTHROMBIN TIME (PATIENT) 11.5 SEC (9.7-13.0)
[2018-06-18] MEDS ORDERED: MIDAZOLAM HCL 2 MG/2 ML SINGLE DOSE VIAL ONE (10:12)
[2018-06-18] MEDS ORDERED: PORTA CATH FLUSH 10 ML IVPUSH PRN (10:24)
[2018-06-18] MEDS ORDERED: ACETAMINOPHEN 325 MG TABLET (FP) ONE (12:14)
[2018-06-18] MEDS ORDERED: ACETAMINOPHEN 325 MG TABLET (FP) PO ONE (12:45)
[2018-06-18 13:18] VITALS: BP 117/83; PULSE 83; TEMP 98.8
== END 2018-06-18 15:02 | disposition home or self-care (01) ==
LOC: JRADIR 07:27
PROVIDERS: ATTEND Internal Medicine Hematology & Oncology
PROC: 0JH63XZ Insertion of Tunneled Vascular Access Device into Chest Subcutaneous Tissue and Fascia, Percutaneous Approach (ICD-10-PCS; principal; 2018-06-18)
PROC: 05HM33Z Insertion of Infusion Device into Right Internal Jugular Vein, Percutaneous Approach (ICD-10-PCS; 2018-06-18)
PROC: B513ZZA Fluoroscopy of Right Jugular Veins, Guidance (ICD-10-PCS; 2018-06-18)
DX: C57.02 Malignant neoplasm of left fallopian tube (principal)
CPT/HCPCS: 36561; C1751; 36415; 77001-TC-FY; 85027; 85610; C1788

== ENCOUNTER 2018-06-20 07:47 | Day surgery (SDC) | payer OTHER ==
[~2018-06-20 07:47] MED LIST: FOSAPREPITANT DIMEGLUMINE 150 MG in SODIUM CHLORIDE 145 ML IVPB ONE
[2018-06-20] MEDS ORDERED: SODIUM CHLORIDE 250 ML IV ONE (09:30)
[2018-06-20] MEDS ORDERED: FOSAPREPITANT DIMEGLUMINE 150 MG in SODIUM CHLORIDE 150 ML IVPB ONE (10:00)
[2018-06-20] MEDS ORDERED: DEXAMETHASONE INJECTION 10 MG, DIPHENHYDRAMINE 50 MG, RANITIDINE INJECTION 50 MG in SOD... IVPB ONE (10:00)
[2018-06-20] MEDS ORDERED: PALONOSETRON HCL 0.25 MG/5 ML VIAL IVPUSH ONE (10:00)
[2018-06-20] MEDS ORDERED: SODIUM CHLORIDE IVPB ONE (10:30)
[2018-06-20] MEDS ORDERED: PACLITAXEL IVPB ONE (10:30)
[2018-06-20 10:33] LABS: BASO % 0.8 % (0-2.0); HEMATOCRIT 37.3 % (32.4-45.2); HEMOGLOBIN 12.4 GM/dL (10.7-15.3); LYMPH % 14.3 % (8-40); MCH 29.7 pg (25.7-33.7); MCHC 33.2 g/dl (32.0-36.0); MEAN CELL VOLUME 89.3 fl (80-96); MEAN PLT VOLUME 7.4 fl (7.5-11.1); MONO % 1.3 % (3.8-10.2); NEUT % 83.6 % (42.8-82.8); PLATELET COUNT 209 K/MM3 (134-434); RBC 4.18 M/mm3 (3.60-5.2); RDW 13.5 % (11.6-15.6)
[2018-06-20 11:02] LABS: ALBUMIN 4.1 g/dl (3.4-5.0); ALK PHOS 59 U/L (45-117); ANION GAP 7 MMOL/L (8-16); BILIRUBIN,DIRECT 0.1 mg/dL (0.0-0.2); BILIRUBIN,TOTAL 0.4 mg/dL (0.2-1); BILIRUBIN,TOTAL 0.5 mg/dL (0.2-1); BLOOD UREA NITROGEN 14 mg/dL (7-18); CALCIUM 9.1 mg/dL (8.5-10.1); CHLORIDE 105 mmol/L (98-107); CO2 27 mmol/L (21-32); CREATININE 0.6 mg/dL (0.55-1.3); GLUCOSE,RANDOM 136 mg/dL (74-106); MAGNESIUM 2.1 mg/dL (1.8-2.4); POTASSIUM 4.1 mmol/L (3.5-5.1); SGOT/AST 13 U/L (15-37); SGPT/ALT 26 U/L (13-61); SODIUM 139 mmol/L (136-145); TOT PROT 7.8 g/dl (6.4-8.2); TOT PROT 7.9 g/dl (6.4-8.2)
[2018-06-20] MEDS ORDERED: SODIUM CHLORIDE 500 ML IV ONE ×2 (12:45→14:00)
[2018-06-20 15:47] VITALS: TEMP 98.2
[2018-06-20] MEDS ORDERED: PORTA CATH FLUSH 10 ML IVPUSH ONE (15:58)
[2018-06-20 19:33] VITALS: BP 136/85; PULSE 101
== END 2018-06-20 19:40 | disposition home or self-care (01) ==
LOC: JONCCHEMO 07:47 → J7W 11:43 → JONCCHEMO 19:40
PROVIDERS: ATTEND Internal Medicine Hematology & Oncology
PROC: 3E04305 Introduction of Other Antineoplastic into Central Vein, Percutaneous Approach (ICD-10-PCS; principal; 2018-06-20)
PROC: 3E043GC Introduction of Other Therapeutic Substance into Central Vein, Percutaneous Approach (ICD-10-PCS; 2018-06-20)
PROC: 3E0437Z Introduction of Electrolytic and Water Balance Substance into Central Vein, Percutaneous Approach (ICD-10-PCS; 2018-06-20)
DX: Z51.11 Encounter for antineoplastic chemotherapy (principal); C57.02 Malignant neoplasm of left fallopian tube
CPT/HCPCS: 36415; 80053; 80076; 83735; 85025; 96361; 96367; 96375; 96413; 96415; 96417; J1100; J1453; J2469

== ENCOUNTER 2018-06-21 15:17 | Day surgery (SDC) | payer OTHER ==
[~2018-06-21 15:17] MED LIST changes: -FOSAPREPITANT DIMEGLUMINE 150 MG in SODIUM CHLORIDE 145 ML IVPB ONE; +PEGFILGRASTIM 6 MG/0.6 ML DISP.SYRIN SQ ONE
[2018-06-21 16:33] VITALS: BP 120/80; PULSE 86; TEMP 98
== END 2018-06-21 16:36 | disposition home or self-care (01) ==
LOC: JONCCHEMO 15:17 → J7W 15:20 → JONCCHEMO 16:36
PROVIDERS: ATTEND Internal Medicine Hematology & Oncology
PROC: 3E013GC Introduction of Other Therapeutic Substance into Subcutaneous Tissue, Percutaneous Approach (ICD-10-PCS; principal; 2018-06-21)
DX: C57.02 Malignant neoplasm of left fallopian tube (principal); Z76.89 Persons encountering health services in other specified circumstances
CPT/HCPCS: 96372; J2505

== ENCOUNTER 2018-06-26 10:50 | Day surgery (SDC) | payer OTHER ==
[2018-06-26] MEDS ORDERED: SODIUM CHLORIDE 1,000 ML IV ONE (11:15)
[2018-06-26 11:36] LABS: HEMATOCRIT 34.1 % (32.4-45.2); HEMOGLOBIN 11.3 GM/dL (10.7-15.3); MCH 29.6 pg (25.7-33.7); MCHC 33.1 g/dl (32.0-36.0); MEAN CELL VOLUME 89.4 fl (80-96); PLATELET COUNT 145 K/MM3 (134-434); RBC 3.82 M/mm3 (3.60-5.2); RDW 13.8 % (11.6-15.6); WHITE BLOOD COUNT 4.2 K/mm3 (4.0-10.0)
[2018-06-26] MEDS ORDERED: ACETAMINOPHEN 325 MG TABLET (FP) ONE (14:48)
[2018-06-26] MEDS ORDERED: ACETAMINOPHEN 325 MG TABLET (FP) PO ONE (15:15)
[2018-06-26 15:42] VITALS: TEMP 98.6
[2018-06-26 15:44] VITALS: BP 120/78; PULSE 99
== END 2018-06-26 15:15 | disposition home or self-care (01) ==
LOC: JONCNONCHE 10:50 → J7W 10:50 → JONCNONCHE 15:15
PROVIDERS: ATTEND Internal Medicine Hematology & Oncology
PROC: 3E0437Z Introduction of Electrolytic and Water Balance Substance into Central Vein, Percutaneous Approach (ICD-10-PCS; principal; 2018-06-26)
DX: E86.0 Dehydration (principal); C57.02 Malignant neoplasm of left fallopian tube
CPT/HCPCS: 36415; 85027; 96360; 96361; J7030

== ENCOUNTER 2018-07-11 07:29 | Day surgery (SDC) | payer OTHER ==
[2018-07-11] MEDS ORDERED: PALONOSETRON HCL 0.25 MG/5 ML VIAL IVPUSH ONE (08:00)
[2018-07-11] MEDS ORDERED: SODIUM CHLORIDE 250 ML IV ONE (08:00)
[2018-07-11] MEDS ORDERED: DEXAMETHASONE INJECTION 10 MG, DIPHENHYDRAMINE 50 MG, RANITIDINE INJECTION 50 MG in SOD... IVPB ONE (08:00)
[2018-07-11] MEDS ORDERED: PACLITAXEL IVPB ONE (08:30)
[2018-07-11] MEDS ORDERED: SODIUM CHLORIDE IVPB ONE ×3 (08:30→12:00)
[2018-07-11] MEDS ORDERED: FOSAPREPITANT DIMEGLUMINE 150 MG in SODIUM CHLORIDE 145 ML IVPB ONE (11:01)
[2018-07-11 11:08] LABS: BASO % 0.2 % (0-2.0); HEMATOCRIT 36.9 % (32.4-45.2); HEMOGLOBIN 12.2 GM/dL (10.7-15.3); LYMPH % 11.3 % (8-40); MCHC 33.1 g/dl (32.0-36.0); MEAN CELL VOLUME 90.6 fl (80-96); MEAN PLT VOLUME 7.3 fl (7.5-11.1); MONO % 0.5 % (3.8-10.2); PLATELET COUNT 448 K/MM3 (134-434); RBC 4.07 M/mm3 (3.60-5.2)
[2018-07-11 11:27] LABS: ALK PHOS 67 U/L (45-117); ANION GAP 15 MMOL/L (8-16); BILIRUBIN,DIRECT 0.1 mg/dL (0.0-0.2); BILIRUBIN,TOTAL 0.4 mg/dL (0.2-1); BLOOD UREA NITROGEN 17 mg/dL (7-18); CALCIUM 9.3 mg/dL (8.5-10.1); CHLORIDE 105 mmol/L (98-107); CO2 21 mmol/L (21-32); CREATININE 0.8 mg/dL (0.55-1.3); GLUCOSE,RANDOM 173 mg/dL (74-106); MAGNESIUM 1.9 mg/dL (1.8-2.4); POTASSIUM 4.1 mmol/L (3.5-5.1); SGOT/AST 14 U/L (15-37); SGPT/ALT 26 U/L (13-61); SODIUM 140 mmol/L (136-145); TOT PROT 7.5 g/dl (6.4-8.2)
[2018-07-11] MEDS ORDERED: CARBOPLATIN IVPB ONE ×2 (11:30→12:00)
[2018-07-11] MEDS ORDERED: SODIUM CHLORIDE 500 ML IV ONE (12:00)
[2018-07-11] MEDS ORDERED: PORTA CATH FLUSH 10 ML IVPUSH ONE (14:23)
[2018-07-11 14:24] VITALS: TEMP 16
[2018-07-11 18:30] VITALS: BP 118/73; PULSE 89
== END 2018-07-11 18:34 | disposition home or self-care (01) ==
LOC: JONCCHEMO 07:29 → J7W 11:44 → JONCCHEMO 18:34
PROVIDERS: ATTEND Internal Medicine Hematology & Oncology
DX: Z51.11 Encounter for antineoplastic chemotherapy (principal); C57.02 Malignant neoplasm of left fallopian tube
CPT/HCPCS: 36415; 80053; 80076; 83735; 84439; 84443; 85025; 96361; 96367; 96375; 96413; 96415; 96417; J1100; J1453; J2469

== ENCOUNTER 2018-07-12 14:52 | Day surgery (SDC) | payer OTHER ==
[2018-07-12] MEDS ORDERED: PEGFILGRASTIM 6 MG/0.6 ML DISP.SYRIN SQ ONE (15:45)
[2018-07-12] MEDS ORDERED: SODIUM CHLORIDE 1,000 ML IV ONE (15:45)
[2018-07-12] MEDS ORDERED: PORTA CATH FLUSH 10 ML IVPUSH ONE (16:35)
[2018-07-12 17:40] VITALS: BP 110/71; PULSE 79
[2018-07-12 17:41] VITALS: TEMP 88.1
== END 2018-07-12 17:45 | disposition home or self-care (01) ==
LOC: JONCCHEMO 14:52 → J7W 14:53 → JONCCHEMO 17:45
PROVIDERS: ATTEND Internal Medicine Hematology & Oncology
PROC: 3E013GC Introduction of Other Therapeutic Substance into Subcutaneous Tissue, Percutaneous Approach (ICD-10-PCS; principal; 2018-07-12)
PROC: 3E0437Z Introduction of Electrolytic and Water Balance Substance into Central Vein, Percutaneous Approach (ICD-10-PCS; 2018-07-12)
DX: C57.02 Malignant neoplasm of left fallopian tube (principal); Z76.89 Persons encountering health services in other specified circumstances
CPT/HCPCS: 96360; 96361; 96372; J2505; J7030

== ENCOUNTER 2018-08-04 07:28 | Day surgery (SDC) | payer OTHER ==
[2018-08-04] MEDS ORDERED: SODIUM CHLORIDE 250 ML IV ONE (09:30)
[2018-08-04] MEDS ORDERED: DEXAMETHASONE INJECTION 10 MG, DIPHENHYDRAMINE 50 MG, RANITIDINE INJECTION 50 MG in SOD... IVPB ONE (10:00)
[2018-08-04] MEDS ORDERED: PALONOSETRON HCL 0.25 MG/5 ML VIAL IVPUSH ONE (10:00)
[2018-08-04 12:32] LABS: BASO % 0.3 % (0-2.0); EOS % 0.1 % (0-4.5); HEMOGLOBIN 13.1 GM/dL (10.7-15.3); LYMPH % 10.1 % (8-40); MCH 32.1 pg (25.7-33.7); MCHC 35.3 g/dl (32.0-36.0); MEAN CELL VOLUME 90.8 fl (80-96); MONO % 0.3 % (3.8-10.2); NEUT % 89.2 % (42.8-82.8); PLATELET COUNT 337 K/MM3 (134-434); RBC 4.08 M/mm3 (3.60-5.2); RDW 16.4 % (11.6-15.6); WHITE BLOOD COUNT 5.5 K/mm3 (4.0-10.0)
[2018-08-04] MEDS ORDERED: SODIUM CHLORIDE 500 ML IV ONE (13:00)
[2018-08-04 13:08] LABS: ALBUMIN 4.1 g/dl (3.4-5.0); ALK PHOS 90 U/L (45-117); ANION GAP 14 MMOL/L (8-16); BILIRUBIN,DIRECT 0.1 mg/dL (0.0-0.2); BILIRUBIN,TOTAL 0.4 mg/dL (0.2-1); BLOOD UREA NITROGEN 18 mg/dL (7-18); CALCIUM 9.1 mg/dL (8.5-10.1); CHLORIDE 103 mmol/L (98-107); CO2 21 mmol/L (21-32); CREATININE 0.9 mg/dL (0.55-1.3); GLUCOSE,RANDOM 206 mg/dL (74-106); POTASSIUM 3.8 mmol/L (3.5-5.1); SGOT/AST 15 U/L (15-37); SGPT/ALT 28 U/L (13-61); SODIUM 138 mmol/L (136-145)
[2018-08-04] MEDS ORDERED: SODIUM CHLORIDE IVPB ONE ×2 (14:00→17:00)
[2018-08-04] MEDS ORDERED: PACLITAXEL IVPB ONE (14:00)
[2018-08-04] MEDS ORDERED: DEXAMETHASONE SOD PHOSPHATE 20 MG/5 ML VIAL IVPB ONE (14:24)
[2018-08-04] MEDS ORDERED: DEXAMETHASONE INJECTION 10 MG in SODIUM CHLORIDE 50 ML IVPB ONE (14:45)
[2018-08-04] MEDS ORDERED: FOSAPREPITANT DIMEGLUMINE 150 MG in SODIUM CHLORIDE 145 ML IVPB ONE (14:45)
[2018-08-04 15:39] LABS: URINE APPEARANCE CLEAR; URINE BILIRUBIN NEGATIVE (<2.0 mg/dL); URINE COLOR STRAW; URINE GLUCOSE (UA) 2+ (NEGATIVE); URINE KETONE NEGATIVE (NEGATIVE); URINE LEUK ESTERASE TRACE (NEGATIVE); URINE NITRITE NEGATIVE (NEGATIVE); URINE PROTEIN NEGATIVE (NEGATIVE); URINE UROBILINOGEN NEGATIVE mg/dL (0.2-1.0)
[2018-08-04 16:57] LABS: EPI CELLS RARE /HPF (FEW); URINE MUCUS RARE
[2018-08-04] MEDS ORDERED: CARBOPLATIN IVPB ONE (17:00)
[2018-08-04 18:45] VITALS: TEMP 99.6
[2018-08-04] MEDS ORDERED: PORTA CATH FLUSH 10 ML IVPUSH ONE (18:58)
[2018-08-04] MEDS ORDERED: SODIUM CHLORIDE 500 ML IV STA (20:28)
[2018-08-04 20:36] VITALS: BP 125/73; PULSE 91
== END 2018-08-04 22:10 | disposition home or self-care (01) ==
LOC: JONCCHEMO 07:28 → J7W 13:02 → JONCCHEMO 22:10
PROVIDERS: ATTEND Internal Medicine Hematology & Oncology
DX: Z51.11 Encounter for antineoplastic chemotherapy (principal); C57.02 Malignant neoplasm of left fallopian tube
CPT/HCPCS: 36415; 80053; 80076; 81003; 81015; 83735; 85025; 87086; 96361; 96367; 96375; 96413; 96415; 96417; J1100; J1453; J2469; J7030

== ENCOUNTER 2018-08-05 07:29 | Day surgery (SDC) | payer OTHER ==
[2018-08-05] MEDS ORDERED: PEGFILGRASTIM 6 MG/0.6 ML DISP.SYRIN SQ ONE (10:00)
[2018-08-05] MEDS ORDERED: SODIUM CHLORIDE 500 ML IV ONE (15:30)
[2018-08-05 16:27] LABS: ANION GAP 8 MMOL/L (8-16); BLOOD UREA NITROGEN 10 mg/dL (7-18); CHLORIDE 115 mmol/L (98-107); CO2 23 mmol/L (21-32); CREATININE 0.3 mg/dL (0.55-1.3); GLUCOSE,RANDOM 87 mg/dL (74-106); SODIUM 146 mmol/L (136-145)
[2018-08-05 16:29] LABS: CALCIUM 6.3 mg/dL (8.5-10.1); POTASSIUM 2.6 mmol/L (3.5-5.1)
[2018-08-05 17:03] VITALS: BP 126/69; PULSE 80; TEMP 97.9
[2018-08-05] MEDS ORDERED: PORTA CATH FLUSH 10 ML IVPUSH ONE ×2 (17:03→17:39)
[2018-08-05 17:54] LABS: ALBUMIN 3.4 g/dl (3.4-5.0); ALK PHOS 62 U/L (45-117); ANION GAP 5 MMOL/L (8-16); BILIRUBIN,TOTAL 0.4 mg/dL (0.2-1); BLOOD UREA NITROGEN 14 mg/dL (7-18); CALCIUM 8.1 mg/dL (8.5-10.1); CHLORIDE 108 mmol/L (98-107); CO2 28 mmol/L (21-32); CREATININE 0.7 mg/dL (0.55-1.3); GLUCOSE,RANDOM 145 mg/dL (74-106); POTASSIUM 3.2 mmol/L (3.5-5.1); SGOT/AST 21 U/L (15-37); SGPT/ALT 33 U/L (13-61); SODIUM 141 mmol/L (136-145); TOT PROT 6.6 g/dl (6.4-8.2)
[2018-08-05] MEDS ORDERED: POTASSIUM CHLORIDE TABS 20 MEQ TABLET.ER (FP) PO ONE (18:15)
== END 2018-08-05 18:20 | disposition home or self-care (01) ==
LOC: JONCCHEMO 07:29 → J7W 14:33 → JONCCHEMO 18:20
PROVIDERS: ATTEND Internal Medicine Hematology & Oncology
PROC: 3E013GC Introduction of Other Therapeutic Substance into Subcutaneous Tissue, Percutaneous Approach (ICD-10-PCS; principal; 2018-08-05)
PROC: 3E0437Z Introduction of Electrolytic and Water Balance Substance into Central Vein, Percutaneous Approach (ICD-10-PCS; 2018-08-05)
DX: C57.02 Malignant neoplasm of left fallopian tube (principal); Z76.89 Persons encountering health services in other specified circumstances
CPT/HCPCS: 36415; 80048; 80053; 83036; 93306-TC; 96360; 96361; 96372; J2505

== ENCOUNTER 2018-08-25 11:23 | Day surgery (SDC) | payer OTHER ==
[2018-08-25] MEDS ORDERED: PALONOSETRON HCL 0.25 MG/5 ML VIAL IVPUSH ONE (12:00)
[2018-08-25] MEDS ORDERED: SODIUM CHLORIDE 250 ML IV ONE (12:00)
[2018-08-25] MEDS ORDERED: DEXAMETHASONE INJECTION 20 MG, DIPHENHYDRAMINE 50 MG, RANITIDINE INJECTION 50 MG in SOD... IVPB ONE (12:00)
[2018-08-25] MEDS ORDERED: FOSAPREPITANT DIMEGLUMINE 150 MG in SODIUM CHLORIDE 145 ML IVPB ONE (12:00)
[2018-08-25 12:26] LABS: BASO % 0.5 % (0-2.0); EOS % 0.4 % (0-4.5); HEMATOCRIT 37.5 % (32.4-45.2); HEMOGLOBIN 12.5 GM/dL (10.7-15.3); LYMPH % 13.2 % (8-40); MCH 30.5 pg (25.7-33.7); MCHC 33.3 g/dl (32.0-36.0); MEAN CELL VOLUME 91.7 fl (80-96); MEAN PLT VOLUME 6.7 fl (7.5-11.1); MONO % 2.7 % (3.8-10.2); NEUT % 83.2 % (42.8-82.8); PLATELET COUNT 307 K/MM3 (134-434); RBC 4.09 M/mm3 (3.60-5.2); WHITE BLOOD COUNT 5.9 K/mm3 (4.0-10.0)
[2018-08-25] MEDS ORDERED: SODIUM CHLORIDE IVPB ONE (12:30)
[2018-08-25] MEDS ORDERED: PACLITAXEL IVPB ONE (12:30)
[2018-08-25 12:55] LABS: ALBUMIN 4.1 g/dl (3.4-5.0); BILIRUBIN,DIRECT 0.1 mg/dL (0.0-0.2); BILIRUBIN,TOTAL 0.4 mg/dL (0.2-1); MAGNESIUM 1.9 mg/dL (1.8-2.4); TOT PROT 7.3 g/dl (6.4-8.2)
[2018-08-25 13:07] LABS: ALK PHOS 65 U/L (45-117); ANION GAP 7 MMOL/L (8-16); BILIRUBIN,TOTAL 0.4 mg/dL (0.2-1); BLOOD UREA NITROGEN 14 mg/dL (7-18); CALCIUM 9.1 mg/dL (8.5-10.1); CHLORIDE 107 mmol/L (98-107); CO2 26 mmol/L (21-32); CREATININE 0.5 mg/dL (0.55-1.3); GLUCOSE,RANDOM 103 mg/dL (74-106); POTASSIUM 4.1 mmol/L (3.5-5.1); SGOT/AST 17 U/L (15-37); SGPT/ALT 27 U/L (13-61); SODIUM 140 mmol/L (136-145); TOT PROT 7.3 g/dl (6.4-8.2)
[2018-08-25] MEDS ORDERED: SODIUM CHLORIDE 500 ML IV ONE (15:30)
[2018-08-25 17:36] VITALS: TEMP 97.6
[2018-08-25] MEDS ORDERED: PORTA CATH FLUSH 10 ML IVPUSH ONE (17:36)
[2018-08-25 19:35] VITALS: BP 117/67; PULSE 74
== END 2018-08-25 19:41 | disposition home or self-care (01) ==
LOC: JONCCHEMO 11:23 → J7W 12:21 → JONCCHEMO 19:41
PROVIDERS: ATTEND Internal Medicine Hematology & Oncology
PROC: 3E04305 Introduction of Other Antineoplastic into Central Vein, Percutaneous Approach (ICD-10-PCS; principal; 2018-08-25)
PROC: 3E043GC Introduction of Other Therapeutic Substance into Central Vein, Percutaneous Approach (ICD-10-PCS; 2018-08-25)
PROC: 3E0437Z Introduction of Electrolytic and Water Balance Substance into Central Vein, Percutaneous Approach (ICD-10-PCS; 2018-08-25)
DX: Z51.11 Encounter for antineoplastic chemotherapy (principal); C57.02 Malignant neoplasm of left fallopian tube
CPT/HCPCS: 36415; 80053; 80076; 83735; 85025; 96361; 96367; 96375; 96413; 96415; 96417; J1100; J1453; J2469

== ENCOUNTER 2018-08-26 10:34 | Day surgery (SDC) | payer OTHER ==
[2018-08-26] MEDS ORDERED: PEGFILGRASTIM 6 MG/0.6 ML DISP.SYRIN SQ ONE (17:30)
[2018-08-26 17:31] VITALS: BP 132/62; PULSE 63; TEMP 98
== END 2018-08-26 17:15 | disposition home or self-care (01) ==
LOC: JONCCHEMO 10:34 → J7W 16:49 → JONCCHEMO 17:15
PROVIDERS: ATTEND Internal Medicine Hematology & Oncology
PROC: 3E013GC Introduction of Other Therapeutic Substance into Subcutaneous Tissue, Percutaneous Approach (ICD-10-PCS; principal; 2018-08-26)
DX: C57.02 Malignant neoplasm of left fallopian tube (principal); Z76.89 Persons encountering health services in other specified circumstances
CPT/HCPCS: 96372; J2505

== ENCOUNTER 2018-09-17 05:47 | Day surgery (SDC) | payer OTHER ==
[2018-09-17] MEDS ORDERED: SODIUM CHLORIDE 250 ML IV ONE (08:00)
[2018-09-17] MEDS ORDERED: PALONOSETRON HCL 0.25 MG/5 ML VIAL IVPUSH ONE (08:30)
[2018-09-17] MEDS ORDERED: FOSAPREPITANT DIMEGLUMINE 150 MG in SODIUM CHLORIDE 145 ML IVPB ONE (08:30)
[2018-09-17] MEDS ORDERED: DEXAMETHASONE SODIUM PHOSPHATE 20 MG, DIPHENHYDRAMINE 50 MG, RANITIDINE INJECTION 50 MG... IVPB ONE (08:30)
[2018-09-17] MEDS ORDERED: SODIUM CHLORIDE IVPB ONE (09:00)
[2018-09-17] MEDS ORDERED: PACLITAXEL IVPB ONE (09:00)
[2018-09-17 09:59] LABS: BASO % 0.3 % (0-2.0); EOS % 0.9 % (0-4.5); HEMATOCRIT 35.4 % (32.4-45.2); HEMOGLOBIN 12.5 GM/dL (10.7-15.3); LYMPH % 18.4 % (8-40); MCH 32.8 pg (25.7-33.7); MCHC 35.4 g/dl (32.0-36.0); MEAN CELL VOLUME 92.7 fl (80-96); MEAN PLT VOLUME 7.1 fl (7.5-11.1); MONO % 3.7 % (3.8-10.2); NEUT % 76.7 % (42.8-82.8); PLATELET COUNT 273 K/MM3 (134-434); RBC 3.81 M/mm3 (3.60-5.2); RDW 15.7 % (11.6-15.6); WHITE BLOOD COUNT 3.6 K/mm3 (4.0-10.0)
[2018-09-17 11:08] LABS: ALBUMIN 3.8 g/dl (3.4-5.0); ALK PHOS 67 U/L (45-117); ANION GAP 8 MMOL/L (8-16); BILIRUBIN,DIRECT 0.1 mg/dL (0.0-0.2); BILIRUBIN,TOTAL 0.4 mg/dL (0.2-1); BLOOD UREA NITROGEN 16 mg/dL (7-18); CALCIUM 8.6 mg/dL (8.5-10.1); CHLORIDE 108 mmol/L (98-107); CO2 25 mmol/L (21-32); CREATININE 0.6 mg/dL (0.55-1.3); GLUCOSE,RANDOM 109 mg/dL (74-106); POTASSIUM 4.1 mmol/L (3.5-5.1); SGOT/AST 13 U/L (15-37); SGPT/ALT 30 U/L (13-61); SODIUM 141 mmol/L (136-145); TOT PROT 7.2 g/dl (6.4-8.2)
[2018-09-17] MEDS ORDERED: SODIUM CHLORIDE 500 ML IV ONE (12:30)
[2018-09-17 13:56] VITALS: TEMP 97.7
[2018-09-17] MEDS ORDERED: PORTA CATH FLUSH 10 ML IVPUSH ONE (14:03)
[2018-09-17 18:07] VITALS: BP 143/86; PULSE 112
== END 2018-09-17 18:20 | disposition home or self-care (01) ==
LOC: JONCCHEMO 05:47 → J7W 11:14 → JONCCHEMO 18:20
PROVIDERS: ATTEND Internal Medicine Hematology & Oncology
DX: Z51.11 Encounter for antineoplastic chemotherapy (principal); C57.02 Malignant neoplasm of left fallopian tube
CPT/HCPCS: 36415; 80048; 80076; 83735; 85025; 96361; 96366; 96367; 96375; 96413; 96415; 96417; J1453; J2469

== ENCOUNTER 2018-09-18 05:20 | Day surgery (SDC) | payer OTHER ==
[2018-09-18] MEDS ORDERED: PEGFILGRASTIM 6 MG/0.6 ML DISP.SYRIN SQ ONE (09:00)
[2018-09-18 17:33] VITALS: BP 128/81; PULSE 89; TEMP 97.5
== END 2018-09-18 15:15 | disposition home or self-care (01) ==
LOC: JONCCHEMO 05:20 → J7W 15:02 → JONCCHEMO 15:15
PROVIDERS: ATTEND Internal Medicine Hematology & Oncology
PROC: 3E013GC Introduction of Other Therapeutic Substance into Subcutaneous Tissue, Percutaneous Approach (ICD-10-PCS; principal; 2018-09-18)
DX: C57.02 Malignant neoplasm of left fallopian tube (principal); Z76.89 Persons encountering health services in other specified circumstances
CPT/HCPCS: 96372; J2505

== ENCOUNTER 2018-10-08 07:24 | Day surgery (SDC) | payer OTHER ==
[2018-10-08] MEDS ORDERED: SODIUM CHLORIDE 250 ML IV ONE (09:30)
[2018-10-08 09:39] LABS: BASO % 0.4 % (0-2.0); EOS % 0.8 % (0-4.5); HEMATOCRIT 34.6 % (32.4-45.2); HEMOGLOBIN 12.2 GM/dL (10.7-15.3); LYMPH % 25.2 % (8-40); MCH 33.8 pg (25.7-33.7); MCHC 35.2 g/dl (32.0-36.0); MEAN PLT VOLUME 7.1 fl (7.5-11.1); MONO % 4.1 % (3.8-10.2); NEUT % 69.5 % (42.8-82.8); PLATELET COUNT 244 K/MM3 (134-434); RBC 3.61 M/mm3 (3.60-5.2); WHITE BLOOD COUNT 2.4 K/mm3 (4.0-10.0)
[2018-10-08] MEDS ORDERED: DEXAMETHASONE SODIUM PHOSPHATE 20 MG, DIPHENHYDRAMINE 50 MG, RANITIDINE INJECTION 50 MG... IVPB ONE (10:00)
[2018-10-08] MEDS ORDERED: FOSAPREPITANT DIMEGLUMINE 150 MG in SODIUM CHLORIDE 150 ML IVPB ONE (10:00)
[2018-10-08] MEDS ORDERED: PALONOSETRON HCL 0.25 MG/5 ML VIAL IVPUSH ONE (10:00)
[2018-10-08 10:06] LABS: ALK PHOS 70 U/L (45-117); ANION GAP 10 MMOL/L (8-16); BILIRUBIN,DIRECT 0.1 mg/dL (0.0-0.2); BILIRUBIN,TOTAL 0.6 mg/dL (0.2-1); BLOOD UREA NITROGEN 18 mg/dL (7-18); CALCIUM 8.9 mg/dL (8.5-10.1); CHLORIDE 108 mmol/L (98-107); CO2 25 mmol/L (21-32); CREATININE 0.6 mg/dL (0.55-1.3); GLUCOSE,RANDOM 107 mg/dL (74-106); MAGNESIUM 2.1 mg/dL (1.8-2.4); POTASSIUM 4.1 mmol/L (3.5-5.1); SGOT/AST 13 U/L (15-37); SGPT/ALT 24 U/L (13-61); SODIUM 143 mmol/L (136-145); TOT PROT 7.1 g/dl (6.4-8.2)
[2018-10-08] MEDS ORDERED: SODIUM CHLORIDE IVPB ONE (10:30)
[2018-10-08] MEDS ORDERED: PACLITAXEL IVPB ONE (10:30)
[2018-10-08] MEDS ORDERED: SODIUM CHLORIDE 500 ML IV ONE (14:00)
[2018-10-08 17:14] VITALS: TEMP 97.9
[2018-10-08 18:00] VITALS: BP 133/83; PULSE 95
[2018-10-08] MEDS ORDERED: PORTA CATH FLUSH 10 ML IVPUSH ONE (18:02)
== END 2018-10-08 18:00 | disposition home or self-care (01) ==
LOC: JONCCHEMO 07:24 → J7W 11:06 → JONCCHEMO 18:00
PROVIDERS: ATTEND Internal Medicine Hematology & Oncology
DX: Z51.11 Encounter for antineoplastic chemotherapy (principal); C57.02 Malignant neoplasm of left fallopian tube
CPT/HCPCS: 36415; 80048; 80076; 83735; 85025; 96361; 96367; 96375; 96413; 96415; 96417; J1453; J2469

== ENCOUNTER 2018-10-09 07:15 | Day surgery (SDC) | payer OTHER ==
[2018-10-09] MEDS ORDERED: PEGFILGRASTIM 6 MG/0.6 ML DISP.SYRIN SQ ONE (10:00)
[2018-10-09 16:26] VITALS: BP 118/81; PULSE 86; TEMP 97.3
== END 2018-10-09 14:45 | disposition home or self-care (01) ==
LOC: JONCCHEMO 07:15 → J7W 14:27 → JONCCHEMO 14:45
PROVIDERS: ATTEND Internal Medicine Hematology & Oncology
PROC: 3E013GC Introduction of Other Therapeutic Substance into Subcutaneous Tissue, Percutaneous Approach (ICD-10-PCS; principal; 2018-10-09)
DX: C57.02 Malignant neoplasm of left fallopian tube (principal); Z76.89 Persons encountering health services in other specified circumstances
CPT/HCPCS: 96372; J2505

== ENCOUNTER 2020-10-12 10:15 | Emergency (ER) | payer OTHER ==
[2020-10-12 10:26] VITALS: BMI 29.2
[2020-10-12] MEDS ORDERED: SODIUM CHLORIDE 1,000 ML IV STA (10:37)
[2020-10-12] MEDS ORDERED: ACETAMINOPHEN 1000 MG/100 ML VIAL (NON FORMULARY) IVPB ONE (10:37)
[2020-10-12] MEDS ORDERED: ONDANSETRON 4 MG/2 ML VIAL IVPUSH ONE (10:37)
[2020-10-12] MEDS ORDERED: ONDANSETRON 4 MG/2 ML VIAL ONE (11:42)
[2020-10-12] MEDS ORDERED: ACETAMINOPHEN INJECTION 100 ML IVPB ONE (11:42)
[2020-10-12 11:53] LABS: BASO % 0.4 % (0-2.0); EOS % 0.2 % (0-4.5); HEMATOCRIT 39.6 % (32.4-45.2); HEMOGLOBIN 13.4 GM/dL (10.7-15.3); LYMPH % 37.9 % (8-40); MCH 35.4 pg (25.7-33.7); MCHC 33.9 g/dl (32.0-36.0); MEAN CELL VOLUME 104.7 fl (80-96); MEAN PLT VOLUME 7.6 fl (7.5-11.1); NEUT % 51.5 % (42.8-82.8); PLATELET COUNT 143 K/MM3 (134-434); RBC 3.79 M/mm3 (3.60-5.2); RDW 15.6 % (11.6-15.6); WHITE BLOOD COUNT 2.5 K/mm3 (4.0-10.0)
[2020-10-12 12:07] LABS: POTASSIUM 4.2 mmol/L (3.5-5.1)
[2020-10-12 12:10] LABS: CALCIUM 8.8 mg/dL (8.5-10.1)
[2020-10-12 12:11] LABS: ALBUMIN 3.9 g/dl (3.4-5.0); BLOOD UREA NITROGEN 16.4 mg/dL (7-18)
[2020-10-12 12:13] LABS: CREATININE 0.7 mg/dL (0.55-1.3)
[2020-10-12 12:15] LABS: BILIRUBIN,TOTAL 0.4 mg/dL (0.2-1); TOT PROT 7.2 g/dl (6.4-8.2)
[2020-10-12] MEDS ORDERED: BAMLANIVIMAB 700 MG in SODIUM CHLORIDE 250 ML IVPB ONE (13:09)
[2020-10-12 14:49] VITALS: BP 119/78; PULSE 102; TEMP 98.7
== END 2020-10-12 15:05 | disposition home or self-care (01) ==
LOC: JCOVINFU 10:15 → JER 10:15 → JCOVINFU 15:05
PROC: 3E0333Z Introduction of Anti-inflammatory into Peripheral Vein, Percutaneous Approach (ICD-10-PCS; principal; 2020-10-12)
PROC: 3E033GC Introduction of Other Therapeutic Substance into Peripheral Vein, Percutaneous Approach (ICD-10-PCS; 2020-10-12)
PROC: 3E0337Z Introduction of Electrolytic and Water Balance Substance into Peripheral Vein, Percutaneous Approach (ICD-10-PCS; 2020-10-12)
DX: U07.1 COVID-19 (principal)
CPT/HCPCS: 36415; 71046-TC-FY; 80053; 85025; 99284-25; C9803; J0131; U0003

== ENCOUNTER 2020-12-20 11:22 | Day surgery (SDC) | payer OTHER ==
[2020-12-20 12:28] LABS: INR 1.03 (0.83-1.09); PROTHROMBIN TIME (PATIENT) 12.5 SEC (9.7-13.0)
== END 2020-12-20 13:35 | disposition home or self-care (01) ==
LOC: JRADIR 11:22
PROVIDERS: ATTEND Internal Medicine Hematology & Oncology
PROC: 0JPT0WZ Removal of Totally Implantable Vascular Access Device from Trunk Subcutaneous Tissue and Fascia, Open Approach (ICD-10-PCS; principal; 2020-12-20)
DX: Z45.2 Encounter for adjustment and management of vascular access device (principal)
CPT/HCPCS: 36415; 36590; 85610

== ENCOUNTER 2025-01-05 11:42 | Observation (INO) | payer OTHER ==
[2025-01-05 11:52] VITALS: BMI 29.0
[2025-01-05] MEDS: SODIUM CHLORIDE 1,000 ML IV STA ×2 (13:06→14:37)
[2025-01-05 13:21] LABS: ABSOLUTE IMMATURE GRANULOCYTES 0.03 x10^3/uL (0.0-0.031); BASOPHILS # 0.02 x10^3/uL (0.01-0.08); EOSINOPHIL % 0.5 % (0.7-5.8); EOSINOPHILS # 0.04 x10^3/uL (0.04-0.36); HEMOGLOBIN 15.1 g/dL (11.2-15.7); MCHC 34.3 g/dl (32.2-35.5); MEAN CELL VOLUME 90.7 fl (79.4-94.8); MEAN PLT VOLUME 9.2 fl (9.4-12.3); MONOCYTE # 0.72 x10^3/uL (0.24-0.86); MONOCYTE % 9.2 % (4.7-12.5); PLATELET COUNT 264 x10^3/uL (182-369); RDW 12.8 % (12.3-16.6)
[2025-01-05 13:22] LABS: VENOUS BASE EXCESS 6.4 mmol/L (-2-2); VENOUS O2 SATURATION 94.6 % (70-80); VENOUS PCO2 40.9 mmHg (38-52); VENOUS PH 7.488 (7.310-7.410)
[2025-01-05 13:33] LABS: INR 1.05 (0.83-1.09); PROTHROMBIN TIME (PATIENT) 11.4 SEC (9.7-13.0)
[2025-01-05 13:36] LABS: ACTIVATED PTT 31.9 SECONDS (25.2-36.5)
[2025-01-05 13:42] LABS: POTASSIUM 3.1 mmol/L (3.5-5.1)
[2025-01-05 13:47] LABS: CALCIUM 10.4 mg/dL (8.5-10.1)
[2025-01-05 13:48] LABS: ALBUMIN 4.3 g/dl (3.4-5.0); BLOOD UREA NITROGEN 30.9 mg/dL (7-18); MAGNESIUM 2.8 mg/dL (1.8-2.4)
[2025-01-05 13:51] LABS: CREATININE 1.7 mg/dL (0.55-1.3)
[2025-01-05 13:52] LABS: BILIRUBIN,TOTAL 0.7 mg/dL (0.2-1); TOT PROT 7.8 g/dl (6.4-8.2)
[2025-01-05 13:56] LABS: N-TERMINAL BNP 67.1 pg/ml (5-125)
[2025-01-05] MEDS ORDERED: METOCLOPRAMIDE HCL INJECTION 10 MG/2 ML VIAL ONE (14:22)
[2025-01-05] MEDS ORDERED: ACETAMINOPHEN INJECTION 100 ML ONE (14:22)
[2025-01-05 14:23] LABS: LACTIC ACID 3.5 mmol/L (0.4-2.0)
[2025-01-05 14:36] LABS: HIV INTERPRETATION NEGATIVE (NEGATIVE)
[2025-01-05 14:37] LABS: HCV DIAGNOSTIC IN-HOUSE W/RFLX NON-REACTIVE (NONREACTIVE)
[2025-01-05] MEDS: ACETAMINOPHEN 1000 MG/100 ML BAG IVPB ONE (14:37)
[2025-01-05] MEDS: METOCLOPRAMIDE HCL INJECTION 10 MG/2 ML VIAL IVPUSH ONE (14:47)
[2025-01-05] MEDS ORDERED: POTASSIUM CHLORIDE ORAL LIQUID 20 MEQ/15 ML ONE (16:05)
[2025-01-05] MEDS: POTASSIUM CHLORIDE ORAL LIQUID 20 MEQ/15 ML PO ONE (16:11)
[2025-01-05 16:47] LABS: LACTIC ACID 2.4 mmol/L (0.4-2.0)
[2025-01-05 17:27] LABS: EPI CELLS 7 /uL (0-25.1); HYALINE CASTS 2 /uL (0-3.1); PH,URINE 5.5 (5.0-8.0); URINE APPEARANCE CLOUDY; URINE BACTERIA >9,000 /uL (0-1359); URINE BILIRUBIN NEGATIVE (NEGATIVE); URINE COLOR YELLOW; URINE GLUCOSE (UA) NEGATIVE (NEGATIVE); URINE KETONE NEGATIVE (NEGATIVE); URINE LEUK ESTERASE NEGATIVE (NEGATIVE); URINE NITRITE NEGATIVE (NEGATIVE); URINE PROTEIN 1+ (NEGATIVE); URINE RBC 33 /uL (0-23.9); URINE UROBILINOGEN 0.2 mg/dL (0.2-1.0)
[2025-01-05] MEDS: SODIUM CHLORIDE 1,000 ML IV SCH (22:37)
[2025-01-06 02:32] VITALS: RESP 18
[2025-01-06 07:06] LABS: CHLORIDE 100 mmol/L (98-107); SODIUM 139 mmol/L (136-145)
[2025-01-06 07:10] LABS: CALCIUM 9.1 mg/dL (8.5-10.1)
[2025-01-06 07:11] LABS: BLOOD UREA NITROGEN 22.3 mg/dL (7-18); CO2 32 mmol/L (21-32); GLUCOSE,RANDOM 104 mg/dL (74-106)
[2025-01-06 07:14] LABS: CREATININE 0.6 mg/dL (0.55-1.3)
[2025-01-06 07:27] LABS: ANION GAP 7 mmol/L (4-13); POTASSIUM 2.9 mmol/L (3.5-5.1)
[2025-01-06] MEDS: KCL 10 MEQ IVPB 10 MEQ/100 ML INFUS.BAG IVPB SCH ×2 (09:09→15:57)
[2025-01-06] MEDS ORDERED: MECLIZINE HCL 25 MG TABLET (FP) PO PRN (09:16)
[2025-01-06] MEDS: POLYETHYLENE GLYCOL (HEALTHYLAX) 3350 17 GM PACKET PO SCH (12:17)
[2025-01-06] MEDS: PANTOPRAZOLE 40 MG TABLET PO SCH (12:17)
[2025-01-06] MEDS: SODIUM CHLORIDE 1,000 ML IV SCH (12:18)
[2025-01-06] MEDS: POTASSIUM CHLORIDE ORAL LIQUID 20 MEQ/15 ML PO ONE (13:28)
[2025-01-06] MEDS: POTASSIUM CHLORIDE 10 MEQ in SODIUM CHLORIDE 1,000 ML IV SCH (15:41)
[2025-01-06 16:55] LABS: URINE APPEARANCE Error; URINE BILIRUBIN NEGATIVE (NEGATIVE); URINE COLOR YELLOW; URINE GLUCOSE (UA) NEGATIVE (NEGATIVE); URINE KETONE NEGATIVE (NEGATIVE); URINE LEUK ESTERASE NEGATIVE (NEGATIVE); URINE NITRITE NEGATIVE (NEGATIVE); URINE PROTEIN NEGATIVE (NEGATIVE)
[2025-01-07 06:53] LABS: POTASSIUM 3.9 mmol/L (3.5-5.1)
[2025-01-07 06:55] LABS: CALCIUM 9.3 mg/dL (8.5-10.1)
[2025-01-07 06:56] LABS: ALBUMIN 3.6 g/dl (3.4-5.0); BLOOD UREA NITROGEN 16.3 mg/dL (7-18)
[2025-01-07 06:59] LABS: CREATININE 0.5 mg/dL (0.55-1.3)
[2025-01-07 07:01] LABS: BILIRUBIN,TOTAL 0.9 mg/dL (0.2-1); TOT PROT 6.6 g/dl (6.4-8.2)
[2025-01-07 13:44] VITALS: BP 117/89; PULSE 97; TEMP 98.4
== END 2025-01-07 14:00 | disposition home or self-care (01) ==
LOC: JER 11:42 → JERBED 15:56 → J4S 17:11
PROVIDERS: ADMIT Family Medicine; ATTEND Family Medicine
PROC: 3E033NZ Introduction of Analgesics, Hypnotics, Sedatives into Peripheral Vein, Percutaneous Approach (ICD-10-PCS; principal; 2025-01-05)
PROC: 3E033GC Introduction of Other Therapeutic Substance into Peripheral Vein, Percutaneous Approach (ICD-10-PCS; 2025-01-05)
PROC: 3E0337Z Introduction of Electrolytic and Water Balance Substance into Peripheral Vein, Percutaneous Approach (ICD-10-PCS; 2025-01-05)
DX: T50 Poisoning by, adverse effect of and underdosing of diuretics and other and unspecified drugs, medicaments and biological substances (principal); Y92.89 Other specified places as the place of occurrence of the external cause; N17.9 Acute kidney failure, unspecified; E87.6 Hypokalemia; Z85.43 Personal history of malignant neoplasm of ovary; Z90.79 Acquired absence of other genital organ(s); K58.9 Irritable bowel syndrome, unspecified; Z87.891 Personal history of nicotine dependence
CPT/HCPCS: 0241U-QW; 36415; 71045-TC-FY; 80048; 80053; 81003; 82570; 82803; 83605; 83735; 83880; 84156; 84484; 85025; 85379; 85610; 85730; 86803; 86850; 86900; 86901; 87086; 87186; 87389; 93005; 93010; 96361; 96365; 96366; 96375; 96376; 99285-25; G0378; J0131